=== PATIENT | male | born 1965 | race Caucasian/White ===

== ENCOUNTER 2022-10-14 04:29 | Day surgery (SDC) | payer OTHER ==
[2022-10-12 09:57] VITALS: BMI 38.8
[2022-10-14 10:23] VITALS: TEMP 98.4
[2022-10-14 10:44] VITALS: RESP 16
[2022-10-14 11:04] VITALS: BP 110/65; PULSE 60
== END 2022-10-14 11:17 | disposition home or self-care (01) ==
LOC: JASU-ENDO 04:29
PROVIDERS: ATTEND Internal Medicine Gastroenterology
PROC: 0D5L8ZZ Destruction of Transverse Colon, Via Natural or Artificial Opening Endoscopic (ICD-10-PCS; 2022-10-14)
PROC: 0D5H8ZZ Destruction of Cecum, Via Natural or Artificial Opening Endoscopic (ICD-10-PCS; principal; 2022-10-14 10:00)
DX: Z12.11 Encounter for screening for malignant neoplasm of colon (principal); D12.0 Benign neoplasm of cecum; D12.3 Benign neoplasm of transverse colon; K57.30 Diverticulosis of large intestine without perforation or abscess without bleeding; K64.4 Residual hemorrhoidal skin tags
CPT/HCPCS: 88305-TC